=== PATIENT | female | born 1980 | race Two or more races ===

== ENCOUNTER 2021-12-06 09:19 | Emergency (ER) | payer OTHER ==
[~2021-12-06] VITALS: Ht 165.1 cm; Wt 58.1 kg
[~2021-12-06 09:19] MED LIST: KETO10TA2 PO
== END 2021-12-06 13:29 | disposition home or self-care (01) ==
LOC: ER 09:19
DX: S91.112A Laceration without foreign body of left great toe without damage to nail, initial encounter (principal); W26.0XXA Contact with knife, initial encounter; Y93.G3 Activity, cooking and baking; Y92.010 Kitchen of single-family (private) house as the place of occurrence of the external cause; Y99.9 Unspecified external cause status

== ENCOUNTER 2022-04-17 10:17 | Emergency (ER) | payer OTHER ==
[~2022-04-17] VITALS: Ht 167.6 cm; Wt 58.1 kg
== END 2022-04-17 18:16 | disposition home or self-care (01) ==
LOC: ER 10:17
DX: K29.70 Gastritis, unspecified, without bleeding (principal)